=== PATIENT | male | born 1950 | race Caucasian/White ===

== ENCOUNTER 2019-05-22 13:17 | Emergency (ER) | payer MEDICARE, MEDICAID ==
[2019-05-22] MEDS ORDERED: BACITRACIN 0.9 GM OINT TOP (17:00)
[2019-05-22] MEDS: BACITRACIN 0.5%/ZINC 28.35 GM OINT TOP (17:39)
== END 2019-05-22 17:43 | disposition home or self-care (01) ==
LOC: FTE 13:17
DX: L02.212 Cutaneous abscess of back [any part, except buttock and flank] (principal); I12.0 Hypertensive chronic kidney disease with stage 5 chronic kidney disease or end stage renal disease; N18.6 End stage renal disease; E11.22 Type 2 diabetes mellitus with diabetic chronic kidney disease; Z96.652 Presence of left artificial knee joint; Z99.2 Dependence on renal dialysis
CPT/HCPCS: 10060; 99283-25